=== PATIENT | male | born 1960 | race Caucasian/White ===

== ENCOUNTER 2016-04-13 04:58 | Inpatient (IN) | payer OTHER ==
[2016-04-13] MEDS ORDERED: IOPAMIDOL 300 (61%) 100 ML VIAL IV ONE (04:59)
[2016-04-13 05:42] LABS: ABSOLUTE NEUTROPHIL COUNT 7.9 K/mm3 (1.8-7.7); BASO % 0.4 % (0.2-1.0); EOS # 0.2 (0.0-0.5); EOS % 1.9 % (0.9-2.9); HEMATOCRIT 45.6 % (32.0-52.0); HEMOGLOBIN 15.6 gm/l (14.0-18.0); IMM NEUT% 0.4 % (0-1); LYMPH # 1.8 (1.0-4.8); MEAN CELL VOLUME 84.8 fl (80.0-94.0); MEAN CORPUSCULAR HGB CONC 34.2 g/dl (33.0-37.0); MEAN PLATELET VOLUME 9.1 fl (7.4-10.4); MONO # 1.1 (0.0-0.8); MONO % 9.8 % (4-12); NEUT % 71.5 % (43-75); PLATELET COUNT 244 K/mm3 (130-400); RED CELL DISTRIBUTION WIDTH 13.1 % (11.5-14.5)
[2016-04-13 06:03] LABS: ALB/GLOB RATIO 1.3 (>1.0); ALBUMIN 4.3 gm/dL (3.5-5.7); CALCIUM 9.3 mg/dL (8.6-10.3)
[2016-04-13 06:06] LABS: TROPONIN I < 0.01 ng/ml (0.0-0.06)
[2016-04-13] MEDS ORDERED: HYDROMORPHONE HCL 1 MG/ML SYRINGE ONE (06:08)
[2016-04-13] MEDS ORDERED: ONDANSETRON 4 MG/2ML 2 ML VIAL ONE (06:08)
[2016-04-13 06:10] LABS: CKMB ISOENZYME 0.6 ng/ml (0.6-6.3)
--- NOTE | 2016-04-13 07:13 | RAD ---
EXAMINATION:CHEST - 2 VIEWS CLINICAL INDICATION: Chest pain. Shortness of breath. COMPARISON:none FINDINGS: The cardiomediastinal silhouette is within normal limits. There is no adenopathy identified. There is left basilar opacity/effusion. Effacement of the costophrenic sulcus is noted. The upper lung zones are clear. The osseous structures are unremarkable for age. IMPRESSION: Left basilar pneumonia with a pleural effusion.
[2016-04-13] MEDS ORDERED: Heparin Sodium 5000 unit/0.5ml syringe ONE (07:15)
[2016-04-13] MEDS ORDERED: HEPARIN SODIUM PREMIX 500 ML IV ONE (07:15)
--- NOTE | 2016-04-13 07:20 | CT ---
EXAMINATION: CT angiography of the thorax.CHEST W/ CON INDICATION: Chest pain. Shortness of breath. COMPARISON: Chest radiographs dated 04/13/2016. TECHNIQUE: Helical scan mode CT of the Thorax after uneventful intravenous contrast administration of 80 ml of Isovue 300. Imaging device: [employer] multidetector CT scan. Helically acquired stacked images were reviewed in the axial, sagittal and coronal planes. Additional 3-D postprocessing was performed and reconstructed images were acquired at the 3D [employer] workstation and reviewed as well. FINDINGS: The bolus is of fair quality for diagnosis of pulmonary embolism. There are pulmonary arterial filling defects. And the medial basilar segment left lower lobe there are pulmonary emboli with poor enhancement of the vasculature. The remainder of the pulmonary vasculature is unremarkable. The lung parenchyma: There is left basilar atelectasis with groundglass opacity. Wedge-shaped atelectasis is noted within the superior segment of the right lower lobe. However this may reflect chronic scarring. There is a 4 mm nodule within the periphery of the right lower lobe. The lung apices are clear. Pleural effusion: None: Mediastinum: There is no axillary, mediastinal or hilar adenopathy. The heart and great vessels opacify normally. Osseus structures: No gross lytic or blastic lesions. Soft tissues: within normal limits Limited evaluation of the abdomen on this arterial phase injection reveals: Cholelithiasis. There is a 3.9 cm lesion within the lateral segment left lobe of liver. This may reflect a hemangioma. Follow-up sonography is recommended however. Remainder the hepatic parenchyma exhibits fatty infiltration. IMPRESSION: 1. Positive for pulmonary embolism. There are emboli within the left lower lobe basilar segments. There is secondary atelectasis as well. 2. Right basilar wedge-shaped opacity with apparent traction bronchiectasis and scarring. This may reflect postinflammatory changes or prior emboli in this distribution. 3. 4 mm nodule peripheral right lower lobe. There is no need for follow-up unless warranted. 4. 3.9 cm lesion lateral segment left lobe of liver. This may reflect a hemangioma however sonographic confirmation or multiphasic hepatic CT should be considered given the slight atypical appearance. 5. Cholelithiasis. Findings were communicated by [facility] to the emergency department at: 7:04 AM 04/13/2016
[2016-04-13] MEDS ORDERED: DIPHENHYDRAMINE HCL 50 MG CAPSULE PO PRN (08:37)
[2016-04-13] MEDS ORDERED: BISACODYL 5 MG TABLET.EC PO PRN (08:37)
[2016-04-13] MEDS ORDERED: BLISTEX LIPSTICK 1 EACH TP PRN (08:37)
[2016-04-13] MEDS ORDERED: MENTHOL/CETYLPYRD 1 EACH LOZENGE PO PRN (08:37)
[2016-04-13] MEDS ORDERED: MAGNESIUM HYDROXIDE 30 ML UDCUP PO PRN (08:37)
[2016-04-13] MEDS ORDERED: SODIUM CHLORIDE 0.9% 100 ML IV PRN (08:37)
[2016-04-13] MEDS ORDERED: BISACODYL 10 MG SUP PR PRN (08:37)
[2016-04-13] MEDS ORDERED: HEPARIN SODIUM PREMIX 500 ML IV SCH (08:45)
[2016-04-13 08:46] VITALS: BMI 27.1
[2016-04-13] MEDS ORDERED: ENOXAPARIN SODIUM 100 MG/ML SYRINGE SUB-Q SCH (10:00)
[2016-04-13] MEDS ORDERED: WARFARIN PER PHARMACY 1 EACH DOSE PO SCH (10:00)
[2016-04-13 10:13] LABS: INR 0.9; PROTHROMBIN TIME 9.5 SECONDS (9.3-11.4)
[2016-04-13] MEDS: PANTOPRAZOLE 40 MG TABLET DR PO SCH (10:16)
[2016-04-13] MEDS: DOCUSATE SODIUM 100 MG CAPSULE PO SCH ×2 (10:17→20:25)
[2016-04-13] MEDS: ACETAMINOPHEN 325 MG TABLET PO PRN ×2 (10:22→17:03)
[2016-04-13] MEDS ORDERED: DIPHTH,PERTUSS(ACELL),TET VAC 0.5 ML VIAL IM V ONE (10:30)
[2016-04-13] MEDS ORDERED: FLU VACC 2016-17 (36MO-64Y)/PF 60 MCG/0.5 ML SYRINGE IM V ONE (11:00)
[2016-04-13] MEDS ORDERED: ENOXAPARIN SODIUM 30 MG/0.3 ML SYRINGE ONE (11:55)
[2016-04-13] MEDS ORDERED: ENOXAPARIN SODIUM 100 MG/ML SYRINGE SUB-Q ONE (11:55)
[2016-04-13] MEDS: ENOXAPARIN SODIUM 100 MG, ENOXAPARIN SODIUM 30 MG SUB-Q SCH ×2 (12:32)
--- NOTE | 2016-04-13 13:42 | HP ---
ADAM ELIZONDO [id number] DATE OF : 1960 DATE OF ADMISSION: 04/13/2016 IDENTIFICATION: Mr. Elizondo is a 55-year-old followed by Dr. Reinaldo Wilson. CHIEF COMPLAINT: Left lower chest pain. HISTORY OF PRESENT ILLNESS: Mr. Elizondo reports onset of sharp pain in his left thoracic just below the ribs. This started in the afternoon of 04/12/2016, and continued through the night into this morning 04/13/2016. The pain was worse with breathing, but mild when not taking a deep respiration. He came to the emergency room where he was worked up. His D-Dimer was normal, but due to concern for pneumonia, a chest CT scan was done and in fact showed a segmental pulmonary embolism in the left lower lobe. There may be small infarction, and pleural effusion. There is some scaring from previous hemothorax and chest tube. He was started on the heparin and referred to the hospitalist service. Risk factors include that he took an airplane trip to [place] last weekend, and that on 04/11/2016, he did have a meeting at work where he was sitting in the breakroom for 4 to 5 hours uninterrupted. REVIEW OF SYSTEMS: HEENT: No headache, lightheadedness, or loss of consciousness. No problems with eyes, ears, nose, and throat. Respiratory: Mild cough nonproductive. Cardiac: No cardiac chest pain, or palpitations. Gastrointestinal: No nausea or vomiting. Reflux well controlled with omeprazole. No diarrhea, constipation, hematochezia, or melena. Genitourinary: Frequency which she relates to drinking a lot of fluids. No dysuria. Musculoskeletal: No pain, or swelling in the lower extremities, or elsewhere. Constitutional: Does feel tired. No fever, or chills. No recent weight changes. PAST MEDICAL HISTORY: 1. Gastroesophageal reflux disease status post endoscopy and esophageal dilation by Dr. Mari in 2012. 2. Hypertension. 3. Dyslipidemia. 4. Allergic rhinitis. PAST SURGICAL HISTORY: 1. Chest tube placement in September 1979 for evacuation of a hemothorax on the left. 2. Esophagogastroduodenoscopy with esophageal dilation in 2012. ALLERGIES: NONE KNOWN MEDICATION ALLERGIES. MEDICATIONS: 1. Simvastatin 20 mg by mouth nightly. 2. Losartan 100 mg by mouth nightly. 3. Omeprazole 40 mg by mouth daily. 4. Betamethasone topically as needed. HABITS: No current or past tobacco use. He does report drinking three to four beers per day. He says he has never had withdrawal symptoms when he abstains. No illicit drug use. SOCIAL HISTORY: He is and lives with his in [place]. He works as a truck trailer mechanic for [employer] FAMILY HISTORY: Positive for coronary artery disease. His father had heart attack and his brother had two heart attacks under the age of 40. PHYSICAL EXAMINATION: GENERAL: This is a pleasant well-appearing middle aged gentleman. He is not in acute distress. VITAL SIGNS: Temperature is 98.6 degrees Fahrenheit. Pulse is 90. Blood pressure is 150/89. Respiratory rate is 20. Oxygen saturation is 96% on room air. HEENT: Atraumatic. Pupils equal, round, and reactive. Extraocular muscles are intact. Mild exophthalmus. Oropharynx is moist. CHEST: Decreased breath sounds at the left base, otherwise clear. No wheezes, or rhonchi. HEART: Regular, no murmur. ABDOMEN: Soft and nontender. Normal bowel tones. No organomegaly. EXTREMITIES: Good peripheral pulses. No clubbing, cyanosis, or edema. Negative Tiffany sign. No tenderness in the calves, or thighs. NEUROLOGIC: Alert and oriented. No focal deficits. LABORATORY DATA: White blood cell count is 11 with normal differential, hemoglobin and hematocrit 15.6 and 45.6, and platelets 244. D-Dimer was normal at 0.46. Sodium is 137, potassium 4, chloride 102, CO2 of 27, BUN 11, creatinine 1, and glucose 111. Liver enzymes are normal. Cardiac enzymes are negative. DIAGNOSTIC IMAGIN. Chest x-ray showed left basilar infiltrate and pleural effusion. 2. CT scan as above showed emboli in the left lower lobe basilar segments with secondary atelectasis. There is a right basilar wedge shaped opacity possibly indicting prior emboli. There is a 4-mm nodule in the peripheral right lower lobe, and a 3.9 cm lesion in the lateral segment of the left lobe of the liver. Ultrasound follow up is recommended. 3. Electrocardiogram shows sinus rhythm with right bundle branch block. ASSESSMENT: Mr. Elizondo is a 55-year-old with acute pulmonary emboli in the left lower lobe. He does not have hypoxemia, but does have underlying hypertension, dyslipidemia, gastroesophageal reflux disease, and allergic rhinitis. He also has right bundle branch block, and a liver lesion with recommended follow up. PLAN: 1. Refer to observation. 2. Replace heparin drip with once daily enoxaparin 1.5 mg per kilogram subcutaneous. 3. Start warfarin therapy. 4. Continue outpatient medications except omeprazole will be replaced with pantoprazole. 5. Follow up liver ultrasound. 6. FULL CODE status. CARLA/sadia cc: Reinaldo Wilson MD
--- NOTE | 2016-04-13 15:29 | US ---
EXAMINATION : ABDOMINAL-LIMITED HISTORY: Assess lesion within the left lobe of the liver in general recent CT scan. COMPARISONS: CT scan dated 04/13/2016. FINDINGS: Within the lateral segment left lobe of liver there is a hyperechoic well-rounded mass with no significant internal Doppler flow. This measures 4.0 x 3.5 x 3.6 cm. The remainder the hepatic parenchyma and the visualized segments is within normal limits. IMPRESSION: Findings most compatible with a hemangioma measuring 4 cm in greatest dimension lateral segment left lobe of liver. Follow-up ultrasound in 6 months to assure stability is recommended.
[2016-04-13] MEDS ORDERED: WARFARIN SODIUM 5 MG TABLET PO ONE ×2 (16:00→18:15)
[2016-04-13] MEDS: OXYCODONE HCL 5 MG TABLET PO PRN ×2 (17:36→20:24)
[2016-04-13] MEDS ORDERED: LOSARTAN POTASSIUM 50 MG TABLET PO SCH (21:00)
[2016-04-13] MEDS ORDERED: SIMVASTATIN 10 MG TABLET PO SCH (21:00)
[2016-04-14 06:11] LABS: INR 0.92; PROTHROMBIN TIME 9.7 SECONDS (9.3-11.4)
[2016-04-14 06:15] LABS: ABSOLUTE NEUTROPHIL COUNT 6.4 K/mm3 (1.8-7.7); BASO # 0.1 K/mm3 (0.0-0.2); BASO % 0.5 % (0.2-1.0); EOS # 0.1 (0.0-0.5); EOS % 1.4 % (0.9-2.9); HEMATOCRIT 45.1 % (32.0-52.0); HEMOGLOBIN 15.2 gm/l (14.0-18.0); IMM NEUT # 0.1 K/mm3 (0-0.2); IMM NEUT% 0.5 % (0-1); LYMPH # 1.7 (1.0-4.8); LYMPH % 17.5 % (15-45); MEAN CELL VOLUME 86.6 fl (80.0-94.0); MEAN CORPUSCULAR HEMOGLOBIN 29.2 pg (27.0-31.0); MEAN CORPUSCULAR HGB CONC 33.7 g/dl (33.0-37.0); MEAN PLATELET VOLUME 9.6 fl (7.4-10.4); MONO # 1.2 (0.0-0.8); MONO % 12.6 % (4-12); NEUT % 67.5 % (43-75); PLATELET COUNT 223 K/mm3 (130-400); RED CELL DISTRIBUTION WIDTH 13.2 % (11.5-14.5)
[2016-04-14 06:18] LABS: CALCIUM 8.9 mg/dL (8.6-10.3)
--- NOTE | 2016-04-14 08:52 | PDOC5 ---
ADMIT DATE: 04/13/16 DISCHARGE DATE: 04/14/16 ADMISSION DIAGNOSES: Left basilar pulmonary emboli PROCEDURES PERFORMED THIS HOSPITALIZATION: CT chest, Liver ultrasound CONSULTATIONS: none HOSPITAL COURSE: This is a 55 year old who presented with left lower chest pain and was found to have pulmonary emboli. He was not hypoxemic. He was started on enoxaparin and warfarin and on 04/14 is appropriate for outpatient f/u. - Exam Vital Signs Temperature 98.0 F 04/14/16 07:48 Pulse Rate 104 04/14/16 07:48 Respiratory Rate 20 04/14/16 07:48 Blood Pressure 147/100 04/14/16 07:48 O2 Saturation by Pulse Oximetry 92 04/14/16 07:48 Oxygen Delivery Method Room Air Oxygen Flow Rate 0 General: Alert, Oriented x3, Cooperative, No Acute Distress HEENT: Mucous membr. moist/pink Lungs: Clear to Auscultation Bilaterally (decreased at left base) Cardiovascular: Regular Rate and Rhythm Abdomen: Soft, Normal Bowel Sounds, No Tenderness, No Masses Extremities: Normal Pulses, No Edema Skin: Normal Color Neurological: Normal Speech Psych/Mental Status: Normal Mood - Results Laboratory 04/14/16 05:30 04/14/16 05:30 04/14/16 05:30 Anion Gap 5 L - Problems:Assessment/Plan (1) Pulmonary embolism Qualifiers: Pulmonary embolism type: other Chronicity: acute Acute cor pulmonale presence: without acute cor pulmonale Qualifier Code: (I26.99) Other pulmonary embolism without acute cor pulmonale Status: AcuteAssessment /Plan: Stable, no hypoxemia, discharge on enoxaparin and warfarin and f/u at [facility]. (2) Allergic rhinitis Qualifiers: Allergic rhinitis trigger: unspecified Allergic rhinitis seasonality: seasonal Qualifier Code: (J30.2) Other seasonal allergic rhinitis Status : ChronicAssessment/Plan: stable (3) Dyslipidemia Status: ChronicAssessment/Plan: stable (4) GERD (gastroesophageal reflux disease) Qualifiers: Esophagitis presence: esophagitis presence not specified Qualifier Code : (K21.9) Gastro-esophageal reflux disease without esophagitis Status: ChronicAssessment/Plan: stable on PPI (5) HTN (hypertension), benign Status: ChronicAssessment/Plan: moderate control, continue losartan. (6) RBBB (right bundle branch block) Status: ChronicAssessment/Plan: stable (7) Hemangioma Status: ChronicAssessment/Plan: appears to be benign hemangioma on liver U/S. F/U U/S in 6 months recommended. - Disposition: Disposition: home today - Discharge Plan Instruction Forms: Pulmonary Embolism Discharge Instructions, Warfarin Therapy Education Forms: Discharge Instructions Additional Instructions: Warfarin diet restrictions. Prescriptions: Warfarin Sodium [COUMADIN 5 MG TABLET (SHF)] 5 mg PO X1 #30 Enoxaparin Sodium [LOVENOX 30 MG SYR (SHF)] 130 mg SUB-Q Q24H #10 Discharge Medications: follow up at [facility] for INR blood tests and warfarin dose adjustment. Follow-Up: David Wilson MD [Primary Care Provider] - In 7-10 days Condition: Good Disposition: Home
[2016-04-14] MEDS: PANTOPRAZOLE 40 MG TABLET DR PO SCH (08:54)
[2016-04-14] MEDS: DOCUSATE SODIUM 100 MG CAPSULE PO SCH (08:54)
[2016-04-14] MEDS ORDERED: ENOXAPARIN SODIUM 30 MG/0.3 ML SYRINGE ONE ×2 (09:54→09:57)
[2016-04-14] MEDS ORDERED: ENOXAPARIN SODIUM 100 MG/ML SYRINGE SUB-Q ONE (09:57)
[2016-04-14] MEDS: ENOXAPARIN SODIUM 100 MG, ENOXAPARIN SODIUM 30 MG SUB-Q SCH ×2 (09:59)
[2016-04-14 11:33] VITALS: BP 144/100
== END 2016-04-14 10:50 | disposition home or self-care (01) | DRG 175 ==
LOC: ED 04:58 → MS 07:10
PROVIDERS: ADMIT Family Medicine; ATTEND Family Medicine
DX: I26.99 Other pulmonary embolism without acute cor pulmonale (principal); J18.9 Pneumonia, unspecified organism; J30.9 Allergic rhinitis, unspecified; E78.5 Hyperlipidemia, unspecified; K21.9 Gastro-esophageal reflux disease without esophagitis; I10 Essential (primary) hypertension; I45.10 Unspecified right bundle-branch block; D18.00 Hemangioma unspecified site; K80.20 Calculus of gallbladder without cholecystitis without obstruction